=== PATIENT | female | born 1965 | race Caucasian/White ===

== ENCOUNTER 2020-08-23 11:08 | Observation (INO) | payer OTHER, SELFPAY ==
[2020-08-23] VITALS (28 sets, daily range): BP systolic 102–151; BP diastolic 71–95; PULSE 80–105; RESP 10–20; TEMP 36.1–36.6; O2SAT 97–100; BMI 34.9
--- NOTE | ~2020-08-23 | CT_ITS ---
EXAMINATION: CTA chest PE protocol DATE: 08/23/2020 14:39 INDICATION: Chest pain. TECHNIQUE: Computed tomography angiography (CTA) of the chest was performed with 100 mL Omnipaque-350 intravenous contrast timed to evaluate the pulmonary arteries. Coronal maximum intensity projection 3D-reconstructions were created by the technologist. Automated exposure control and iterative reconst ruction technique were employed. The dose-length product was 317.16 mGy-cm. COMPARISON: CT abdomen 04/25/2015 FINDINGS: The visualized portions of the lung bases demonstrate mild atelectasis. No pleural effusion . The heart size is normal. No pericardial effusion. There are changes of cholecystectomy. There is n o pulmonary embolus. There is mild thoracic spondylosis. There are chronic compression fractures of T 3 and L1. IMPRESSION: 1. No pulmonary embolus. Reviewed, dictated and finalized at location A. CLOTH FOLDER IMPRESSION: 1. No pulmonary embolus.
--- NOTE | ~2020-08-23 | XR_ITS ---
EXAMINATION: XR chest 2V EXAM DATE: 08/23/2020 12:06 INDICATION: Chest, shoulder pain since Saturday. TECHNIQUE: Frontal and lateral projections of the chest obtained and reviewed. There is no prior branden dy for comparison. FINDINGS: The lungs are clear. There are no pleural effusions. The cardiomediastinal silhouette is within normal limits. There is no pneumothorax suspected. The bones and soft tissues are unremarkab le. There are cholecystectomy clips. IMPRESSION: No acute cardiopulmonary findings. Reviewed, dictated and finalized at location B. MBLY MACHINE OPERATOR
--- NOTE | 2020-08-23 11:34 | ECG_ITS ---
Measurements Intervals [place] Rate: 101 P: 49 [place]: 121 QRS: 40 QRSD: 80 T: 54 QT: 339 QTc: 441 Interpretive Statements SINUS TACHYCARDIA EARLY PRECORDIAL R/S TRANSITION BORDERLINE ST-T WAVE ABNORMALITY- DIFFUSE LEADS BORDERLINE ECG Electronically Signed On 08-23-2020 12:02:56 MAINSPRING STRIP GAUGER by Florencio Calvo D.O.
[2020-08-23 11:44] LABS: Basophils Absolute Auto 0.1 K/mm3 (0.0-0.1); Basophils Percent Auto 1.5 % (0.2-1.2); Eosinophils Absolute Auto 0.1 K/mm3 (0-0.3); Eosinophils Percent Auto 1.5 % (0-4.4); Hematocrit 40.7 % (37.0-47.0); Hemoglobin 13.4 g/dL (12.0-15.0); Immature Granulocyte Absolute 0.01 K/mm3 (0.00-0.031); Immature Granulocyte Percent A 0.2 % (0-0.5); Lymphocytes Absolute Auto 1.65 K/mm3 (0.9-3.2); Lymphocytes Percent Auto 30.7 % (18.3-44.2); Mean Corpuscular HGB Conc 32.9 g/dl (32-36); Mean Corpuscular Hemoglobin 30.6 pg (26-34); Mean Corpuscular Volume 92.9 fl (80-100); Mean Platelet Volume 11.2 fl (7.4-10.4); Monocytes Absolute Auto 0.6 K/mm3 (0.1-0.6); Monocytes Percent Auto 10.4 % (2.6-8.5); Neutrophils Percent Auto 55.7 % (45.5-73.1); Platelet Count Result 259 k/mm3 (150-375); Red Blood Count 4.38 M/mm3 (4.2-5.4); Red Cell Distribution Width 12.5 % (11.5-14.5); White Blood Count 5.4 K/mm3 (4.5-10.0)
[2020-08-23 11:53] LABS: INR 0.9; Prothrombin Time 13.2 Seconds (11.1-14.7)
[2020-08-23 11:54] LABS: Anion Gap 8 mmol/L (8-16); Blood Urea Nitrogen 21 mg/dL (7-17); Calcium 9.1 mg/dL (8.4-10.2); Carbon Dioxide 27 mmol/L (22-30); Chloride 106 mmol/L (98-107); Estimated CRCL calculation 62 ml/min; Estimated Glomerular Filt Rate > 60; Glucose 93 mg/dL (65-105); Partial Thromboplastin Time 27.3 SECONDS (22.3-36.8); Potassium 3.8 mmol/L (3.4-5.0); Sodium 141 mmol/L (137-145)
[2020-08-23 12:06] LABS: Troponin I < 0.012 ng/mL (0.000-0.034)
[2020-08-23] MEDS: ASPIRIN 81 MG CHEWABLE TABLET 324 MG PO (12:46)
--- NOTE | 2020-08-23 12:49 | ED.CHESTPAIN ---
HPI - Chest Pain General Chief Complaint: Chest Pain Stated Complaint: left shoulder pain /tired Time Seen by Provider: 08/23/20 12:10 Source: patient Mode of arrival: ambulatory Limitations: no limitations History of Present Illness HPI narrative: Patient is a 54-year-old female complaining of chest pain, left upper chest wall, sharp, burning, nonradiating accompanied by nausea and lightheadedness that started yesterday. Patient denies any shortness of breath, abdominal pain, nausea, vomiting, diarrhea, fever or chills. Related Data Home Medications Medication Instructions Recorded Confirmed clonazepam See Rx Instructions .ROUTE .COMPLEX 08/23/20 08/23/20 trazodone HS 08/23/20 venlafaxine mg PO DAILY 08/23/20 Allergies Allergy/AdvReac Type Severity Reaction Status Date / Time Sulfa (Sulfonamide Allergy Unknown Rash Verified 08/23/20 11:28 Antibiotics) Review of Systems Review of Systems: All systems reviewed & are unremarkable except as noted in HPI and below Constitutional: Constitutional: Denies body ache(s), Denies chills, Denies excessive sweating, Denies fatigue, Denies fever(s), Denies headache(s), Denies lethargy, Denies malaise, Denies weakness and Denies weight loss Eyes: Eyes: Denies blurry vision, Denies change in vision and Denies loss of vision ENT: Denies dizziness, Denies ear discharge, Denies headache(s), Denies lip swelling, Denies epistaxis, Denies nasal congestion, Denies neck pain, Denies throat swelling and Denies tongue swelling Cardiovascular: Cardiovascular: Denies diaphoresis, Denies rapid heart rate, Denies edema, Denies irregular heart rhythm, Denies lightheadedness, Denies palpitations, Denies dyspnea and Denies dyspnea on exertion Respiratory: Respiratory: Denies chest congestion, Denies cough, Denies hemoptysis, Denies dyspnea and Denies dyspnea on exertion Gastrointestinal: Gastrointestinal: Denies abdominal pain, Denies melena, Denies hematochezia, Denies diarrhea, Denies vomiting and Denies hematemesis Musculoskeletal: Musculoskeletal: Denies abnormal gait, Denies deformity, Denies joint swelling, Denies limited range of motion, Denies neck pain and Denies numbness Neurologic: Denies Abnormal speech present, Denies abnormal gait, Denies confusion, Denies dizziness, Denies headache(s), Denies focal weakness, Denies loss of vision, Denies numbness, Denies Other visual disturbances, Denies Sensory deficit (Neuro) and Denies weakness Psychiatric: Psychiatric: Denies confusion, Denies depression, Denies auditory hallucinations, Denies homicidal ideation and Denies suicidal ideation Endocrine: Endocrine: Denies cold intolerance, Denies excessive sweating, Denies fatigue, Denies heat intolerance and Denies palpitations Hematologic/Lymphatic: Hematologic/Lymphatic: Denies easy bleeding and Denies easy bruising Allergic/Immunologic: Allergic/Immunologic: Denies lip swelling, Denies throat swelling and Denies tongue swelling PMFSH Family History Family History Sibling Family history of mental disorder Mother Hypertension Father Family history of kidney disease Family history of Alzheimer's disease Family history of coronary artery disease, Onset Age: 42 Other Acute myocardial infarction Depression Family history of arthritis Social History Social History Second hand tobacco smoke exposure: No Alcohol intake: never Gender identity (if verbalized by the patient): Female Comments Past medical history: None Exam Const: General: cooperative, healthy appearing, comfortable, no acute distress, well developed, alert and awake; No confusion Orientation/consciousness: oriented to person, oriented to place, oriented to time, patient oriented x3 and No confusion Limitations: no limitations HENMT: Head: normal to inspection, normocephalic and atraumatic Ears: h
[2020-08-23 12:54] LABS: Lipase 100 U/L (23-300)
[2020-08-23 13:31] LABS: D Dimer 1.05 ug/mL (<0.48)
[2020-08-23 15:26] LABS: Troponin I < 0.012 ng/mL (0.000-0.034)
--- NOTE | 2020-08-23 18:00 | ECG_ITS ---
Measurements Intervals [place] Rate: 68 P: 61 [place]: 127 QRS: 50 QRSD: 86 T: 68 QT: 400 QTc: 427 Interpretive Statements SINUS RHYTHM NONSPECIFIC T-WAVE ABNORMALITY- ANTERIOR LEADS BORDERLINE ECG Electronically Signed On 08-23-2020 20:12:12 INVESTIGATION SPECIALIST by Florencio Calvo D.O.
[2020-08-23 18:02] LABS: Troponin I < 0.012 ng/mL (0.000-0.034)
--- NOTE | 2020-08-23 18:14 | PM.IMHP ---
H&P: HPI History of Present Illness Date/Time: 08/23/20 18:14 Chief complaint is chest pain Chief Complaint: chest pain Narrative: Ryann Lucas is a 54 year old female with family history of coronary disease, history of depression, came to the hospital because of feeling weak and fatigued with chest pain. Start having chest pain over the weekend, she was seen by primary care provider who instructed her to come to the hospital in view of not feeling well. She stated that she woke up Saturday morning feeling very tired fatigued and could not do anything state fatigued and tired all day and started in the afternoon to have a heaviness the chest with left shoulder pain. Her symptoms mainly nonexertional as far as the pain but the with that she felt very fatigued and very tired. No known history of coronary artery disease no history of previous cardiac history, so far cardiac enzymes are negative and EKG is unremarkable. No nausea no vomiting Review of Systems Review of Systems: All systems reviewed & are unremarkable except as noted in HPI and below PMFSH Family History Family History Sibling Family history of mental disorder Mother Hypertension Father Family history of kidney disease Family history of Alzheimer's disease Family history of coronary artery disease, Onset Age: 42 Other Acute myocardial infarction Depression Family history of arthritis Social History Social History Second hand tobacco smoke exposure: Yes Alcohol intake: never Gender identity (if verbalized by the patient): Female Meds Home Medications and Allergies Home Medications Medication Instructions Recorded Confirmed Type clonazepam 0.5 mg PO DAILY 08/23/20 08/23/20 History trazodone 50 mg PO HS 08/23/20 08/23/20 History venlafaxine 75 mg PO BID 08/23/20 08/23/20 History Allergies Allergy/AdvReac Type Severity Reaction Status Date / Time Sulfa (Sulfonamide Allergy Unknown Rash Verified 08/23/20 11:28 Antibiotics) Vital Signs Vital Signs - 24 hr 08/23/20 11:16 08/23/20 11:20 08/23/20 11:25 Temperature 36.1 C L Pulse Rate 105 H 100 100 Respiratory Rate 19 14 Blood Pressure 151/95 H Pulse Oximetry 99 97 08/23/20 11:30 08/23/20 11:31 08/23/20 11:47 Temperature Pulse Rate 92 92 91 Respiratory Rate 14 13 19 Blood Pressure 124/86 Pulse Oximetry 97 99 100 08/23/20 12:06 08/23/20 12:17 08/23/20 12:47 Temperature Pulse Rate 85 86 84 Respiratory Rate 18 13 13 Blood Pressure 115/83 Pulse Oximetry 100 100 99 08/23/20 12:51 08/23/20 13:07 08/23/20 13:50 Temperature Pulse Rate 90 81 90 Respiratory Rate 11 L 11 L 11 L Blood Pressure Pulse Oximetry 99 100 98 08/23/20 14:19 08/23/20 14:46 08/23/20 15:00 Temperature Pulse Rate 87 82 83 Respiratory Rate 11 L 10 L 13 Blood Pressure Pulse Oximetry 100 100 08/23/20 15:01 08/23/20 15:02 08/23/20 15:15 Temperature Pulse Rate 81 85 82 Respiratory Rate 13 12 15 Blood Pressure 103/71 Pulse Oximetry 100 97 100 08/23/20 15:30 08/23/20 15:31 08/23/20 15:45 Temperature Pulse Rate 80 85 82 Respiratory Rate 11 L 14 17 Blood Pressure 120/81 Pulse Oximetry 100 100 100 08/23/20 16:00 08/23/20 16:01 08/23/20 16:15 Temperature Pulse Rate 83 83 84 Respiratory Rate 15 13 11 L Blood Pressure 121/80 Pulse Oximetry 98 100 100 08/23/20 16:57 08/23/20 17:02 08/23/20 17:54 Temperature 36.6 C Pulse Rate 85 88 Respiratory Rate 20 16 Blood Pressure 102/76 119/84 Pulse Oximetry 100 100 100 Exam Narrative: Exam Narrative: Awake alert oriented x3 not in acute distress Neck is supple no obvious JVD, no carotid bruit Chest: Good air entry bilaterally, lungs are clear to auscultation and percussion bilaterally Cardiovascular: Regular rate and rhythm, 2/6 systolic murmur noted left s
--- NOTE | 2020-08-23 18:32 | ADMGEN ---
This patient, Ryann Lucas, was admitted to [facility]. Patient/family oriented to hospital policies and general routines including ID bracelet, bed and alarms, visiting hours, pain management, procedures, bathroom and other care routines, personal items, smoking policy, room service/diet, and visiting hours. Information on how to activate the Rapid Response Team has been discussed. Patient/Family are encouraged to report perceived risks to care and to ask questions if they do not understand what they are told or what they should do.
--- NOTE | 2020-08-23 18:32 | PC.NURSE ---
1830-all medications addressed with MD. Reordered per order. No distress noted. Pt resting quietly. Will continue to monitor.
[2020-08-23 18:33] LABS: Cholesterol 109 mg/dL (0-200); HDL Direct 48 mg/dL; Triglycerides 56 mg/dL (<150)
[2020-08-23 18:44] LABS: LDL Cholesterol Direct 44 mg/dL
--- NOTE | 2020-08-23 20:09 | PC.NURSE ---
This patient, Ryann Lucas, was received from [ [facility] ] on 08/23/20 at 2008. Patient/family oriented to unit policies and routines
[2020-08-24] VITALS: BP 89/62; PULSE 74; PULSE 77; RESP 18; TEMP 36.2; O2SAT 97
--- NOTE | 2020-08-24 | EST_ITS ---
Patient Info Name: Ryann Lucas Age: 54 years : 1965 Gender: Female Ht: 61 in Wt: 184 lbs BSA: 1.93 m2 HR: 81 bpm BP: 135 / 77 mmHg Heart Rhythm: Sinus Rhythm Exam Date: 08/24/2020 11:53 AM Exam Location: [facility] Patient Status: Outpatient Admit Date: 08/23/2020 Staff Ordering Physician: Donnell Fuentes MD Claim Rep: Shirley Rondon RDCS Attending Provider: Donnell Fuentes MD Exercise Technologist: Tawana Jolly CT Exercise Physician: Donnell Fuentes MD Exam Type: CA stress echo Study Info Treadmill exercise stress echocardiogram is performed. Summary 1. Left ventricular chamber size, wall thickness, systolic and diastolic function are normal with no regional wall motion abnormalities with an estimated ejection fraction of >70%. 2. Greater than 1 mm of horizontal or downsloping ST depression - anterior leads. 3. Negative stress echocardiogram for ischemia by wall motion analysis. Stress Echo Findings Left Ventricle Normal left venticular systolic function with no regional wall motion abnormalities noted at rest. Left Ventricle Left ventricular chamber size, wall thickness, systolic and diastolic function are normal with no regional wall motion abnormalities with an estimated ejection fraction of >70%. Protocol: Andrew Stress ECG Details Stage: REST Duration (min): 7 min : 38 sec Speed (mph): 0.0 Grade (%): 0 HR (bpm): 103 SBP (mmHg): 135 DBP (mmHg): 77 METS: --- Stage: STAGE 1 Duration (min): 1 min : 0 sec Speed (mph): 1.7 Grade (%): 10 HR (bpm): 118 SBP (mmHg): 135 DBP (mmHg): 77 METS: --- Stage: STAGE 1 Duration (min): 2 min : 0 sec Speed (mph): 1.7 Grade (%): 10 HR (bpm): 131 SBP (mmHg): 135 DBP (mmHg): 77 METS: --- Stage: STAGE 1 Duration (min): 3 min : 0 sec Speed (mph): 1.7 Grade (%): 10 HR (bpm): 140 SBP (mmHg): 158 DBP (mmHg): 77 METS: --- Stage: STAGE 2 Duration (min): 1 min : 0 sec Speed (mph): 2.5 Grade (%): 12 HR (bpm): 127 SBP (mmHg): 158 DBP (mmHg): 77 METS: --- Stage: STAGE 2 Duration (min): 2 min : 0 sec Speed (mph): 0.0 Grade (%): 0 HR (bpm): 159 SBP (mmHg): 179 DBP (mmHg): 85 METS: --- Stage: STAGE 2 Duration (min): 2 min : 3 sec Speed (mph): 0.0 Grade (%): 0 HR (bpm): 159 SBP (mmHg): 179 DBP (mmHg): 85 METS: --- Stage: RECOVERY Duration (min): 0 min : 56 sec Speed (mph): 0.0 Grade (%): 0 HR (bpm): 134 SBP (mmHg): 179 DBP (mmHg): 85 METS: --- Stage: RECOVERY Duration (min): 1 min : 56 sec Speed (mph): 0.0 Grade (%): 0 HR (bpm): 121 SBP (mmHg): 179 DBP (mmHg): 85 METS: --- Stage: RECOVERY Duration (min): 2 min : 56 sec Speed (mph): 0.0 Grade (%): 0 HR (bpm): 107 SBP (mmHg): 197 DBP (mmHg): 95 METS: --- Stage: RECOVERY Duration (min): 3 min : 15 sec
[2020-08-24] MEDS: traZODone HCL 50 MG TABLET 100 MG PO (01:53)
[2020-08-24 03:59] VITALS: BP 104/63; PULSE 78; RESP 18; TEMP 36.4; O2SAT 96
[2020-08-24 04:00] VITALS: PULSE 73
[2020-08-24 07:56] VITALS: BP 97/63; PULSE 72; RESP 16; TEMP 36.8; O2SAT 99
[2020-08-24 08:00] VITALS: PULSE 110
--- NOTE | 2020-08-24 08:18 | PM.PNCARD ---
Progress Note: A&P Assessment and Plan (1) Atypical chest pain: Code(s): R07.89 - Other chest pain Status: Acute Assessment and Plan: She has atypical symptoms, but she does however have significant risk factors for coronary disease including family history, dyslipidemia, history of nicotine use, with 3 cardiac enzymes all negative, and she is pain-free now. Will proceed with stress echo today at 11:[address] Fuentes. (2) Family history of coronary artery disease: Code(s): Z82.49 - Family history of ischemic heart disease and other diseases of the circulatory system Status: Acute Assessment and Plan: -LDL 44 this admission. -continue low-fat low-cholesterol diet. (3) Nicotine use: Code(s): Z72.0 - Tobacco use Status: Acute Assessment and Plan: advice her to quit using nicotine lozenges (4) Dyslipidemia: Code(s): E78.5 - Hyperlipidemia, unspecified Status: Acute Assessment and Plan: -LDL 44 this admission. -continue low-fat low-cholesterol diet. Subjective Date/time seen: 08/24/20 08:18 Patient denies chest pain, dyspnea, or dizziness. She feels well overall. Patient was seen and examined, chart reviewed, case discussed with nurse. Exam Narrative: Exam Narrative: Awake alert oriented x3 not in acute distress Neck is supple no obvious JVD, no carotid bruit Chest: Good air entry bilaterally, lungs are clear to auscultation and percussion bilaterally Cardiovascular: Regular rate and rhythm, 2/6 systolic murmur noted left sternal border Abdomen: Soft nontender bowel sounds positive Extremities: No edema has good pulses distally bilaterally Objective Data Vital Signs Vital Signs: Vital Signs - 24 hr 08/23/20 11:16 08/23/20 11:20 08/23/20 11:25 Temperature 36.1 C L Pulse Rate 105 H 100 100 Respiratory Rate 19 14 Blood Pressure 151/95 H Pulse Oximetry 99 97 08/23/20 11:30 08/23/20 11:31 08/23/20 11:47 Temperature Pulse Rate 92 92 91 Respiratory Rate 14 13 19 Blood Pressure 124/86 Pulse Oximetry 97 99 100 08/23/20 12:06 08/23/20 12:17 08/23/20 12:47 Temperature Pulse Rate 85 86 84 Respiratory Rate 18 13 13 Blood Pressure 115/83 Pulse Oximetry 100 100 99 08/23/20 12:51 08/23/20 13:07 08/23/20 13:50 Temperature Pulse Rate 90 81 90 Respiratory Rate 11 L 11 L 11 L Blood Pressure Pulse Oximetry 99 100 98 08/23/20 14:19 08/23/20 14:46 08/23/20 15:00 Temperature Pulse Rate 87 82 83 Respiratory Rate 11 L 10 L 13 Blood Pressure Pulse Oximetry 100 100 08/23/20 15:01 08/23/20 15:02 08/23/20 15:15 Temperature Pulse Rate 81 85 82 Respiratory Rate 13 12 15 Blood Pressure 103/71 Pulse Oximetry 100 97 100 08/23/20 15:30 08/23/20 15:31 08/23/20 15:45 Temperature Pulse Rate 80 85 82 Respiratory Rate 11 L 14 17 Blood Pressure 120/81 Pulse Oximetry 100 100 100 08/23/20 16:00 08/23/20 16:01 08/23/20 16:15 Temperature Pulse Rate 83 83 84 Respiratory Rate 15 13 11 L Blood Pressure 121/80 Pulse Oximetry 98 100 100 08/23/20 16:57 08/23/20 17:02 08/23/20 17:54 Temperature 36.6 C Pulse Rate 85 88 Respiratory Rate 20 16 Blood Pressure 102/76 119/84 Pulse Oximetry 100 100 100 08/23/20 20:00 08/24/20 00:00 08/24/20 03:59 Temperature 36.6 C 36.2 C L 36.4 C L Pulse Rate 98 74 78 Respiratory Rate 18 18 18 Blood Pressure 122/87 89/62 L 104/63 Pulse Oximetry 97 97 96 08/24/20 04:00 08/24/20 07:56 Temperature 36.8 C Pulse Rate 73 72 Respiratory Rate 16 Blood Pressure 97/63 L Pulse Oximetry 99 Intake/Output Intake/Output: Intake & Output 08/21/20 08/22/20 08/23/20 08/24/20 23:59 23:59 23:59 23:59 Intake Total 100 Balance 100 Meds/Results Medications: Active Medications Generic Name Dose Route Start Last Admin Trade Name Freq PRN Reason Stop Dose Admin Aspirin 81 mg 08/24/20 09:00 Aspirin 81 Mg E
[2020-08-24] MEDS: VENLAFAXINE HCL XR 75 MG CAP.ER.24H 150 MG PO (09:17)
[2020-08-24] MEDS: clonazePAM (*CRX) 0.5 MG TABLET PO (09:17)
[2020-08-24] MEDS: ASPIRIN 81 MG ENTERIC TABLET PO (09:17)
[2020-08-24 10:09] VITALS: O2SAT 95
--- NOTE | 2020-08-24 11:32 | PC.NURSE ---
Patient to stress lab via wheelchair.
--- NOTE | 2020-08-24 12:07 | P.DS_ITS ---
DS: Admitting Diagnosis Admitting Diagnosis Admitting Diagnosis: atypical chest pain DS: Discharge Diagnosis Discharge Diagnosis (1) Atypical chest pain: Code(s): R07.89 - Other chest pain Status: Acute Assessment and Plan: She has atypical symptoms, but she does however have significant risk factors for coronary disease including family history, dyslipidemia, history of nicotine use, with 3 cardiac enzymes all negative, and she is pain-free now. stress echo was done today showed moderate exercise impairment but no evidence of ischemia. She will be going home today to follow up 1 week (2) Family history of coronary artery disease: Code(s): Z82.49 - Family history of ischemic heart disease and other diseases of the circulatory system Status: Acute Assessment and Plan: -LDL 44 this admission. -continue low-fat low-cholesterol diet. (3) Nicotine use: Code(s): Z72.0 - Tobacco use Status: Acute Assessment and Plan: advice her to quit using nicotine lozenges (4) Dyslipidemia: Code(s): E78.5 - Hyperlipidemia, unspecified Status: Acute Assessment and Plan: -LDL 44 this admission. -continue low-fat low-cholesterol diet. DS: Summary Hospital Course Hospital Course: she underwent stress echo which was negative cardiac enzymes were negative Time Spent with Patient Time attestation: Total time spent providing and/or coordinating discharge services: Exam Narrative: Exam Narrative: Awake alert oriented x3 not in acute distress Neck is supple no obvious JVD, no carotid bruit Chest: Good air entry bilaterally, lungs are clear to auscultation and p ercussion bilaterally Cardiovascular: Regular rate and rhythm, 2/6 systolic murmur noted left sternal border Abdomen: Soft nontender bowel sounds positive Extremities: No edema has good pulses distally bilaterally DS: Data Data Completed and Pending Labs on day of discharge: Labs from last 24 hours 08/23/20 08/23/20 08/23/20 17:32 17:32 14:48 D-Dimer Troponin I < 0.012 < 0.012 Triglycerides 56 Cholesterol 109 LDL Cholesterol Direct 44 HDL Direct 48 Lipase 08/23/20 08/23/20 11:37 11:37 D-Dimer 1.05 H Troponin I Triglycerides Cholesterol LDL Cholesterol Direct HDL Direct Lipase 100 Discharge Plan Discharge Attending physician on discharge: Donnell Fuentes Discharging Clinician: Donnell Fuentes Patient Disposition: Home, Self-Care Activity: no preference Diet: heart healthy Wound Care Instructions: follow printed instructions Patient Instructions: Antibiotic Form Stand Alone Forms: General Discharge Information Follow-up/Referrals: Donnell Fuentes MD [Physician] - Discharge Medications: Continued venlafaxine 75 mg capsule,extended release 24hr 150 mg PO BID RF: 0 trazodone 50 mg tablet 50 mg PO HS RF: 0 clonazepam 0.5 mg tablet 0.5 mg PO DAILY RF: 0 Date of admission: 08/23/20 15:12 Primary Care Provider: SalazarPiper Admitting Provider: Donnell Fuentes Attending physician on admission: Donnell Fuentes Condition: Stable
--- NOTE | 2020-08-24 12:13 | PC.NURSE ---
Patient returned to room following stress test.
== END 2020-08-24 12:32 | disposition home or self-care (01) ==
LOC: ANHED 15:16 → ANHCPC 16:01 → ANHIMU 20:13
PROVIDERS: Emergency Medicine; Admitting Provider Specialist; Emergency Provider Emergency Medicine; PCP Nurse Practitioner Adult Health; Visit Provider Specialist
DX: R07.89 Other chest pain (principal); E78.5 Hyperlipidemia, unspecified; Z82.49 Family history of ischemic heart disease and other diseases of the circulatory system; Z72.0 Tobacco use
CPT/HCPCS: 36415; 71046; 71275; 80048; 80061; 83690; 84484; 85025; 85380; 85610; 85730; 93005; 93351; 99285; A9270; G0378; Q9967

== ENCOUNTER 2021-05-26 01:27 | Day surgery (SDC) | payer OTHER, SELFPAY ==
[2021-05-17 13:51] VITALS: BMI 34.2
--- NOTE | 2021-05-17 14:00 | PC.NURSE ---
Report to the Outpatient Waiting Room, entrance under the green pavilion located off [facility], at time _0600_ on date 05/26/21__. OR Time: . - You and your visitor will be asked a series of questions to screen for COVID 19 for your protection. - A mask is required within the hospital. - Only one visitor is allowed at this time. Patient visitors will be guided where to wait when not with patient. Preoperative COVID Testing Requirements: No COVID Test needed if: (proof is required; if not received patient will have Rapid Test prior to entry) - Patient has received COVID Vaccine at least 14 days prior to procedure date or - Patient has positive COVID test result within last 90 days of surgery date. COVID Test needed if above criteria is not met If not COVID vaccinated a COVID test must be conducted within 72 hours of surgery and patient is asked to isolate self from time of testing until procedure. You will go to the [facility] for your COVID testing. The [facility] site is located at the corner of [address] from [facility]. You will only be called if COVID results are positive and your surgeon may reschedule your elective surgery date. Patients may have clear liquids (water, carbonated beverages, clear teas, apple juice) until 3 hours prior to surgery with a maximum of 20 ounces. - No food from midnight until time of surgery - Infants may have breast milk until 4 hours before surgery, formula 6 hours prior to surgery. - Children will be allowed to drink immediately following surgery. If applicable, please bring a bottle or sippy cup to assist with drinking. Juice, water, soda, and popsicles are readily available. For infants on formula, please bring formula the day of surgery. Pacifiers are allowed. Take the following medications with a SIP of water the morning of surgery: _CLONIPINE, VENLAFEXINE Medications to discontinue per physician Date to take last dose Please no make-up, nail fijian, hairspray, perfume, deodorant, or body powder the day of surgery. No jewelry (including any body piercings) or valuables the day of surgery, leave them at home. Please take a shower or bath the night before, or the morning of, surgery with an antibacterial soap. Wear comfortable, loose fitting clothing. Children are encouraged to wear pajamas. - Jewelry must be removed prior to entering the operating room. Rings and piercings that are not removed may be cut off. - The hospital will not accept responsibility for valuables. - Please leave all valuables, including medications, at home the day of surgery. If you are going home after surgery, a licensed courier delivery driver must drive you home. - NO public transportation without another adult. - We recommend that an adult stay with you for 24 hours following discharge. - We also recommend that you do not drive, make important decision, drink alcoholic beverages, or take any drugs that were not prescribed by your health care provider for at least 24 hours after your discharge time. For Pediatric surgeries, we recommend two adults accompany the child home (only one inside the building at this time). Follow any additional instructions given to you from your surgeon. Telephone instructions given to _PATIENT____and asked if any additional questions and then verbalized understanding. Patient advised to call surgeon office or pre surgery nurse liaison [phone] if any additional questions.
[2021-05-26 07:06] VITALS: BP 112/66; PULSE 88; RESP 16; TEMP 36.7; O2SAT 97
[2021-05-26] MEDS: LACTATED RINGERS 1,000 ML 30 ML IV CONT (07:06)
--- NOTE | 2021-05-26 07:10 | WPDANESEPPF ---
Anes - Initial Pre Proc Eval Procedure: Operation Date: 05/26/21 07:30 Proposed Procedures p Excisional Biopsy Left Axillary Mass and Left Flank Mass - Florinda Ibarra MD Date/Time: 05/26/21 07:10 Surgeon: Florinda Ibarra MD Pre Op Diagnosis: left axillary mass, left flank mass Patient Data Age: 55 Gender: F Height: 1.57 m Weight: 86.6 kg Last Vital Signs Temp 36.7 C 05/26/21 07:06 Pulse 88 05/26/21 07:06 Resp 16 05/26/21 07:06 BP 112/66 05/26/21 07:06 Pulse Ox 97 05/26/21 07:06 Allergies Allergy/AdvReac Type Severity Reaction Status Date / Time Sulfa (Sulfonamide Allergy Severe Rash Verified 05/26/21 06:00 Antibiotics) Home Medications Medication Instructions Recorded Confirmed Type clonazepam 0.5 mg PO DAILY 08/23/20 05/26/21 History trazodone 50 mg PO HS 08/23/20 05/26/21 History venlafaxine 150 mg PO DAILY 08/23/20 05/26/21 History acetaminophen 650 mg PO ONCE PRN 05/17/21 05/26/21 History ibuprofen [Motrin] 600 mg PO PRN PRN 05/17/21 05/26/21 History Patient hx anesthesia problems: none Family hx anesthesia problems: none Results Review: All pre-operative results and documents have been reviewed as part of the pre-operative evaluation. [facility] Past Medical History Medical History (Updated 05/03/21 @ 09:41 by Vale Leblanc [facility]) Depression Surgical History Surgical History H/O tubal ligation History of cholecystectomy Family History Family History Sibling Family history of mental disorder Mother Hypertension Father Family history of kidney disease Family history of Alzheimer's disease Family history of coronary artery disease, Onset Age: 42 Other Acute myocardial infarction Depression Family history of arthritis Social History Social History Smoking packs per day: 1 Smoking cigarettes per day: 20.0 Years smoked: 25 Smoking pack-years: 25.00 Smoking status: Former smoker Tobacco type: e-cigarettes/vaping Second hand tobacco smoke exposure: Yes Additional smoking assessment comments: USES NICOTINE LOZENGES Alcohol intake: current Alcohol use details: 2 DRINKS PER YEAR Substance use: never Substance use type: does not use Last use: 2009 Living arrangements: with family Gender identity (if verbalized by the patient): Female Spiritual care concerns: No Anes - Eval Final PreProcedure Day of Procedure 05/26/21 07:10 Patient weight: obese Heart: regular rate and rhythm Lungs: clear to auscultation and normal air movement Airway: Mallampati scale class II Neurological: alert and oriented Last oral intake: >/= 8 hours ASA classification: II Emergent: no Anesthetic plan: proceed Anesthesia type and monitoring: general GIVS Results Review: All pre-operative results and documents have been reviewed as part of the pre-operative evaluation. Informed Consent: The patient's anesthetic plan and its attendant risks and benefits were discussed with the patient/family/POA. Questions were solicited and answers provided to the satisfaction of the patient/family/POA.
--- NOTE | 2021-05-26 07:23 | WPDHPUPDATE1 ---
History and Physical Update Update Date/Time: 05/26/21 07:23 History and Physical has been reviewed, including an updated exam of the patient. There are NO changes in the patient's condition. Risks, benefits, and alternatives have been discussed and questions answered. Patient agrees to proceed with procedure.
[2021-05-26] MEDS: ceFAZolin 2 GM/D5W 50 ML 2 GM/50 ML BAG IVPB (07:28)
[2021-05-26] MEDS: LIDO 1%/EPINEPHRINE 1:100,000 50 ML VIAL INFILTRATE (08:05)
--- NOTE | 2021-05-26 08:34 | P.OP_ITS ---
Procedure Note - Detailed Date of Procedure 05/26/21 Pre-op Diagnosis left axillary mass, left flank mass Post-op Diagnosis same Procedure Performed excisional biopsy left axillary mass, left flank mass Surgeon Florinda Ibarra MD Anesthesia MAC and local Indications 55-year-old female presenting to the office with left axillary mass and left flank mass. The patient reports that these areas have been slowly growing in size over the last 5 years. The patient reports tenderness in the area with palpation and or pressure. Findings Well encapsulated subcutaneous mass left flank measuring approximately 10 x 6 cm, multi lobular mass, likely lipoma, left axilla Description of Procedure The patient was taken to the operating and placed in the lateral position. After adequate induction of MAC anesthesia, the patient was prepped and draped in the normal sterile fashion. A time-out was then done to verify the patient's identity, as well as the procedure being performed. I began localizing the dermis and underlying subcutaneous tissue around both these masses. I then began by making an incision over the left flank mass. This incision was carried through the dermis and into the subcutaneous tissue. I was able to locate a well encapsulated mass within the subcutaneous tissue. This mass measured approximately 10 x 6 cm. The mass was noted to be adherent posterior to the muscle, however did not involve the muscle. I was able to excise the mass in full and will be sent to pathology for further review. Then copiously irrigated the cavity and hemostasis was gained with the Bovie cautery. I then closed the subcutaneous tissue with 3-0 Vicryl suture and the skin was closed with 4-0 Monocryl subcuticular suture. Dermabond was then placed on the incision. I then made an incision over the left axillary mass. Again this was carried through the dermis and into the subcutaneous tissue. There was noted to be most likely a multi lobular lipoma in this area. I did move remove this in aggre gate, removing approximately 6 x 4 cm of lipoma. Once this was done, I once again copiously irrigated the area. Hemostasis was gained with the Bovie cautery. Subcutaneous tissue was again closed with 3-0 Vicryl suture and the skin closed with 4-0 Monocryl subcuticular suture. Dermabond was placed on this incision. The patient tolerated the procedure well and was alert and awake in the operating room. She will be sent to the recovery room in stable condition. Estimated Blood Loss 10 Drains No Packing No Pathology yes Complications No immediate complications Condition stable Disposition PACU
[2021-05-26 08:50] VITALS: BP 118/70; PULSE 108; RESP 14; TEMP 36.2; O2SAT 95
[2021-05-26] MEDS: oxyCODONE HCL (*CRX) 5 MG TAB IR PO (09:19)
[2021-05-26 09:20] VITALS: BP 129/76; PULSE 85; O2SAT 100
[2021-05-26 09:50] VITALS: BP 132/83; PULSE 77
--- NOTE | 2021-05-26 10:29 | SUR.PHASEII ---
Patient called back after leaving the hospital saying her pharmacy can't fill her prescription because they don't have that medication available. RN changed preferred pharmacy in the computer and called Dr. Ibarra's office requesting him to switch the location of the prescriptions.
== END 2021-05-26 09:53 | disposition home or self-care (01) ==
PROVIDERS: PCP Nurse Practitioner Adult Health; Visit Provider Surgery
PROC: (CPT 21931; principal; 2021-05-26 07:30)
DX: D17.1 Benign lipomatous neoplasm of skin and subcutaneous tissue of trunk (principal); D17.22 Benign lipomatous neoplasm of skin and subcutaneous tissue of left arm; F32.9 Major depressive disorder, single episode, unspecified; Z87.891 Personal history of nicotine dependence; E66.9 Obesity, unspecified; Z68.34 Body mass index [BMI] 34.0-34.9, adult
CPT/HCPCS: 21931; 24071; 88304; A9270; J0690; J2250; J2704; J3010; J7120

== ENCOUNTER 2022-05-01 12:50 | Outpatient (CLI) | payer OTHER, SELFPAY ==
--- NOTE | 2022-05-01 | ECHO_ITS ---
Patient Info Name: Ryann Lucas Age: 56 years : 1965 Gender: Female Ht: 62 in Wt: 180 lbs BSA: 1.92 m2 HR: 85 bpm BP: 129 / 90 mmHg Heart Rhythm: Sinus Rhythm Technical Quality: Fair Exam Date: 05/01/2022 1:00 PM Exam Location: [facility] Pulmonary Patient Status: Outpatient Admit Date: 05/01/2022 Staff Ordering Physician: ErnestoPiper NP Sdet: Nuha Dang RDCS Attending Provider: ErnestoPiper NP Exam Type: CA echo doppler color flow Study Info Indications R00.0 - Tachycardia, unspecified Complete two-dimensional, color flow and Doppler transthoracic echocardiogram is performed. Strain analysis performed. Summary 1. Complete two-dimensional, color flow and Doppler transthoracic echocardiogram is performed. 2. Left ventricular systolic function is normal, estimated at 55-60%. 3. Left ventricular chamber dimension is mildly enlarged. 4. The left ventricular diastolic function is grade I diastolic dysfunction. 5. Right ventricular systolic function is normal. 6. There is mild tricuspid valve regurgitation. Left Ventricle Global longitudinal strain is -18 %. Left ventricular chamber dimension is mildly enlarged. Left ventricular systolic function is normal, estimated at 55-60%. There is no increased left ventricular wall thickness. The left ventricular diastolic function is grade I diastolic dysfunction. Right Ventricle Right ventricular chamber dimension is normal. Right ventricular systolic function is normal. Left Atria Left atrial chamber dimension is normal. Right Atria Right atrial chamber dimension is normal. Atrial Septum Intact interatrial septum visualized by color flow imaging. Aortic Valve The aortic valve is trileaflet. There is no aortic valve stenosis. There is no aortic valve regurgitation. Pulmonic Valve The pulmonic valve is not well visualized. Mitral Valve The mitral valve has normal leaflets. There is no mitral valve stenosis. There is trace mitral valve regurgitation. Tricuspid Valve The tricuspid valve leaflets are normal. There is no significant tricuspid valve stenosis. There is mild tricuspid valve regurgitation. Pericardium/Pleural There is no pericardial effusion. Inferior Vena Cava Normal inferior vena cava with >50% collapse upon inspiration consistent with normal right atrial pressure. Aorta The aortic root size at the sinus of Valsalva is normal. Left Ventricular Outflow Tract Name Value Normal LVOT 2D LVOT Diameter 2.0 cm LVOT Doppler LVOT Peak Gradient 3 mmHg LVOT Mean Gradient 2 mmHg LVOT VTI 18 cm LVOT VTI/AV VTI Ratio 0.8 LVOT Stroke Volume 56 ml LVOT CO 4.0 l/min LVOT CI 2.1 l/min/m2 Pulmonic Valve Name Value Normal
== END 2022-05-01 12:51 | disposition home or self-care (01) ==
PROVIDERS: PCP Nurse Practitioner Adult Health; Visit Provider Nurse Practitioner Adult Health
DX: R00.0 Tachycardia, unspecified (principal); I36.1 Nonrheumatic tricuspid (valve) insufficiency
CPT/HCPCS: 93306